=== PATIENT | male | born 1945 ===

== ENCOUNTER 2024-04-10 06:46 | Day surgery (SDC) | payer OTHER ==
[2024-04-10] MEDS ORDERED: fentaNYL CITRATE 50 MCG/ML AMPUL IV PUSH ONE (10:30)
[2024-04-10] MEDS ORDERED: MIDAZOLAM HCL 2 MG/2 ML VIAL IV ONE (10:30)
[2024-04-10] MEDS ORDERED: DIPHENHYDRAMINE HCL 50 MG/ML VIAL 1ML IV ONE (10:30)
== END 2024-04-10 11:45 | disposition home or self-care (01) ==
LOC: AMB-ENDOS 06:46
PROVIDERS: ATTEND Colon & Rectal Surgery
DX: D12.5 Benign neoplasm of sigmoid colon (principal); Z86.0100 Personal history of colon polyps, unspecified